=== PATIENT | male | born 1980 | race Caucasian/White ===

== ENCOUNTER 2018-08-04 21:51 | Inpatient (IN) | payer MEDICAID ==
[~2018-08-04] VITALS: Ht 177.8 cm; Wt 63.6 kg
[2018-08-04] MEDS ORDERED: ondansetron/PF 4mg/2ml inj IV STA (22:04)
[2018-08-04] MEDS ORDERED: HYDROmorphone 1 mg/ml syringe IV STA (22:04)
[2018-08-04] MEDS ORDERED: NO HOME MEDS (22:09)
--- NOTE | 2018-08-04 22:43 | NUR ---
Pt's cousin and now at bedside. Pt updated on plan of care. Pt awaiting er md.
[2018-08-04] MEDS ORDERED: HYDROmorphone 1 mg/ml syringe IV PRN (22:55)
--- NOTE | 2018-08-04 23:48 | NUR ---
Assessment completed for primary RN.
[2018-08-04] MEDS: normal saline 1000ml 1,000 ML IV SCH (23:49)
[2018-08-04] MEDS ORDERED: clindamycin phosphate 150mg/ml inj. ONE (23:59)
[2018-08-04] MEDS ORDERED: gentamicin 40 MG/1 ML inj ONE (23:59)
[2018-08-05] VITALS (19 sets, daily range): BP systolic 102–150; BP diastolic 59–82
[2018-08-05] MEDS ORDERED: HYDROcodone/acetaminophen 5mg/325mg tablet PO PRN
[2018-08-05] MEDS ORDERED: magnesium hydroxide 30ml (MOM) UD suspension PO PRN
[2018-08-05] MEDS ORDERED: magnesium 4gm in 100ml NS 100 ML IV PRN
[2018-08-05] MEDS ORDERED: HYDROcodone/acetaminophen 10/325mg tab PO PRN
[2018-08-05] MEDS ORDERED: potassium Cl 40MEQ/NS 500ml 500 ML IV PRN
[2018-08-05] MEDS ORDERED: acetaminophen 325mg tablet PO PRN ×2
[2018-08-05] MEDS ORDERED: potassium CL 10mEq/100ml bag 100 ML IV PRN
[2018-08-05] MEDS ORDERED: magnesium 2GM in 50ml NS 50 ML IV PRN
[2018-08-05] MEDS ORDERED: potassium Cl 20 mEq SR tablet PO PRN ×2
[2018-08-05] MEDS ORDERED: magnesium Cl slow-release 64mg tablet PO PRN
[2018-08-05] MEDS ORDERED: mag hydrox/Alum hydrox/simeth 30ml oral suspension PO PRN
[2018-08-05] MEDS ORDERED: HYDROmorphone inj. 0.5 MG/0.5 ML DISP.SYRIN IV PRN
[2018-08-05] MEDS ORDERED: HYDROmorphone 1 mg/ml syringe IV PRN
--- NOTE | 2018-08-05 00:04 | NUR ---
DR TY AT BEDSIDE. ADMISSION ORDERS IN. SURGERY TRANSPORT HERE. PT TALKING WITH AND REPORTS DR. MCWILLIAMS HAS JUST CALLED AND UPDATED HER. EKG JUST COMPLETED. PT PREPARED FOR OR AND IN TRANSIT NOW.
[2018-08-05] MEDS ORDERED: ringers solution, lacted 1,000 ML IV SCH (00:08)
[2018-08-05] MEDS ORDERED: ondansetron/PF 4mg/2ml inj IV PRN ×2 (00:10)
[2018-08-05] MEDS ORDERED: proCHLORperazine 10 MG/2 ml inj IV PRN (00:10)
[2018-08-05] MEDS ORDERED: morphine 4 MG/ML inj SYRINge IV PRN ×2 (00:10)
[2018-08-05] MEDS ORDERED: meperidine/PF 25mg/ml syringe IV PRN ×4 (00:10→01:40)
[2018-08-05] MEDS ORDERED: midazolam 2 mg/2 ml injection ONE (00:12)
[2018-08-05] MEDS ORDERED: fentaNYL /PF 50mcg/ml 5ml ampule ONE (00:12)
[2018-08-05] MEDS ORDERED: propofol inj 20 ML IV ONE (00:14)
[2018-08-05] MEDS ORDERED: LIDOcaine 2% (20mg/ml) 5ml vial ONE (00:14)
[2018-08-05 00:15] LABS: ALANINE AMINOTRANSFERASE 19 U/L (12-78); ALBUMIN 3.1 G/DL (3.4-5.0); ALKALINE PHOSPHATASE 51 IU/L (46-116); ANION GAP 6 (8-16); ASPARTATE AMINO TRANSFERASE 17 U/L (10-37); BASOPHILS % (AUTO) 0.1 % (0-1); BILIRUBIN,TOTAL 0.6 MG/DL (0.1-1.0); BLOOD UREA NITROGEN 15 MG/DL (7-18); BUN/CREATININE RATIO 14.9 (5.4-32.0); CALCIUM 8.4 MG/DL (8.5-10.1); CHLORIDE 104 MMOL/L (99-107); CREATININE 1.01 MG/DL (0.60-1.10); EOSINOPHILS % (AUTO) 0 % (0-6); GLUCOSE 121 MG/DL (70-104); HEMATOCRIT 40.1 % (42.0-52.0); HEMOGLOBIN 13.8 g/dl (14.0-17.9); LIPASE 155 U/L (73-393); LYMPHOCYTES # (AUTO) 0.2 X10'3 (1.1-4.8); LYMPHOCYTES % (AUTO) 2.4 % (21-51); MEAN CORPUSCULAR HEMOGLOBIN 32.5 PG (27.0-31.0); MEAN CORPUSCULAR HGB CONC 34.4 g/dL (33.0-36.5); MEAN CORPUSCULAR VOLUME 94.4 FL (78-98); MEAN PLATELET VOLUME 7.2 FL (7.4-10.4); MONOCYTES # (AUTO) 0.4 X10'3 (0-0.9); MONOCYTES % (AUTO) 3.9 % (2-12); NEUTROPHILS # (AUTO) 9.8 X10'3 (1.8-7.7); NEUTROPHILS % (AUTO) 93.6 % (42-75); PLATELET COUNT 287 X10'3 (140-440); POTASSIUM 4.6 MMOL/L (3.5-5.1); RED BLOOD COUNT 4.25 X10'6 (4.70-6.10); RED CELL DISTRIBUTION WIDTH 13.3 % (11.5-14.5); SODIUM 136 MMOL/L (135-145); TOTAL CARBON DIOXIDE 26.1 MMOL/L (24-32); TOTAL PROTEIN 6.1 G/DL (6.4-8.2); WHITE BLOOD COUNT 10.5 X10'3 (4.5-11.0); eGFR 82 ML/MIN
[2018-08-05] MEDS ORDERED: acetaminophen 1000 MG/100ml vial IV ONE (00:15)
[2018-08-05] MEDS ORDERED: dexamethasone sod phosphate 10mg/ml inj ONE (00:15)
[2018-08-05] MEDS ORDERED: sevoflurane 250ml liquid IH ONE (00:15)
[2018-08-05] MEDS ORDERED: rocuronium 10mg/ml inj IV ONE ×2 (00:25→01:32)
[2018-08-05] MEDS: cefotetan 1gm/50ml IVPB 50 ML IV SCH ×2 (00:50→01:20)
[2018-08-05 00:55] LABS: PARTIAL THROMBOPLASTIN TIME 26 SECONDS (22-32)
[2018-08-05] MEDS ORDERED: ondansetron/PF 4mg/2ml inj ONE (01:22)
[2018-08-05] MEDS ORDERED: neostigmine methylsulfate 1 MG/ML 10ml vial ONE (01:32)
[2018-08-05] MEDS ORDERED: glycopyrrolate 0.2mg/ml inj ONE (01:32)
[2018-08-05] MEDS ORDERED: naloxone 0.4 mg/ml inj IV PRN (01:45)
[2018-08-05] MEDS ORDERED: CADD PCA waste documentation MC PRN (01:45)
[2018-08-05] MEDS ORDERED: HYDROmorphone/NS 1 mg/ml CADD 50 ML IV SCH (01:45)
--- NOTE | 2018-08-05 01:55 | NUR ---
Received from OR via bed, accompanied by Anesthesiologist. Report received. Initial physical assessment done and recorded. N/G to low continuous suction small amount clear drainage. Boyd gravity with dark urine in collection bag, MD aware. Abdominal dressing D/I DAVID drain noted with small amount of light red drainage. Responsive to name, no complaints of pain on admission.
--- NOTE | 2018-08-05 02:10 | NUR ---
C/O surgical pain, medicated as ordered
--- NOTE | 2018-08-05 03:05 | NUR ---
Discharge criteria met, report to receiving floor. Transferred to room in stable condition. Dilaudid CONSERVATION SCIENTIST set up on arrival to floor, report and bedside handoff to receiving RN Cesar.
[2018-08-05] MEDS: HYDROmorphone/NS 1 mg/ml CADD 50 ML IV SCH ×11 (03:06→23:00)
--- NOTE | 2018-08-05 03:10 | NUR ---
pt arrived to floor in stable condition via gurney. PILE DRIVER set up with instructions given to pt for use. 2 rn skin check conducted, pt oriented to room, call charles within reach, bed lowered and locked with 2 side rails up. Vitals; 97.2 F 14RR, 83HR, 96% SPO2 room air. Will continue to monitor
[2018-08-05] MEDS: pantoprazole 40MG/NS 100ML BAG 100 ML IV SCH ×4 (04:52→20:49)
--- NOTE | 2018-08-05 06:27 | NUR ---
Problems reprioritized. Patient report given, questions answered & plan of care reviewed with AIDEN Pace.
[2018-08-05] MEDS: normal saline 1000ml 1,000 ML IV SCH ×6 (06:29→20:48)
--- NOTE | 2018-08-05 06:29 | NUR ---
Problems reprioritized. Patient report given, questions answered & plan of care reviewed with AIDEN Nuñez.
--- NOTE | 2018-08-05 06:51 | NUR ---
Patient in room [facility]. I have received report from AIDEN Guerrero and had the opportunity to ask questions and assume patient care.
[2018-08-05] MEDS: K and/or MAG REPLACEMENT MC SCH (07:12)
[2018-08-05] MEDS: enoxaparin 40mg/0.4ml syringe SQ SCH (07:32)
[2018-08-05] MEDS: piperacillin/tazo 3.375gm/50ml 50 ML IV SCH ×2 (07:32→16:27)
--- NOTE | 2018-08-05 11:28 | NUR ---
Post op vital signs from this morning were not put in by NOC shift due to the machine turning off and having to restart the vitals. PCT on day shift will input the vitals starting at 0600.
[2018-08-05] MEDS ORDERED: pantoprazole 40MG/NS 100ML BAG 100 ML IV SCH (16:00)
--- NOTE | 2018-08-05 18:33 | NUR ---
Problems reprioritized. Patient report given, questions answered & plan of care reviewed with Dianne Dean RN.
--- NOTE | 2018-08-05 18:35 | NUR ---
Patient in room [facility]. I have received report from BELEN WOLFE and had the opportunity to ask questions and assume patient care.
[2018-08-05] MEDS ORDERED: temazepam 15mg capsule PO PRN (21:00)
[2018-08-06] VITALS: BP 105/70
[2018-08-06] MEDS: piperacillin/tazo 3.375gm/50ml 50 ML IV SCH ×3 (00:39→17:16)
[2018-08-06] MEDS: HYDROmorphone/NS 1 mg/ml CADD 50 ML IV SCH ×12 (01:00→23:00)
[2018-08-06] MEDS: pantoprazole 40MG/NS 100ML BAG 100 ML IV SCH ×5 (02:11→22:38)
[2018-08-06] MEDS: normal saline 1000ml 1,000 ML IV SCH ×2 (02:13→13:47)
[2018-08-06 05:40] LABS: BASOPHILS % (AUTO) 0.1 % (0-1); EOSINOPHILS % (AUTO) 0 % (0-6); HEMATOCRIT 31.8 % (42.0-52.0); HEMOGLOBIN 10.9 g/dl (14.0-17.9); LYMPHOCYTES # (AUTO) 0.8 X10'3 (1.1-4.8); LYMPHOCYTES % (AUTO) 6.8 % (21-51); MEAN CORPUSCULAR HEMOGLOBIN 32.5 PG (27.0-31.0); MEAN CORPUSCULAR HGB CONC 34.3 g/dL (33.0-36.5); MEAN CORPUSCULAR VOLUME 94.9 FL (78-98); MEAN PLATELET VOLUME 7.9 FL (7.4-10.4); MONOCYTES # (AUTO) 0.6 X10'3 (0-0.9); MONOCYTES % (AUTO) 4.7 % (2-12); NEUTROPHILS # (AUTO) 10.7 X10'3 (1.8-7.7); NEUTROPHILS % (AUTO) 88.4 % (42-75); PLATELET COUNT 215 X10'3 (140-440); RED BLOOD COUNT 3.36 X10'6 (4.70-6.10); WHITE BLOOD COUNT 12.1 X10'3 (4.5-11.0)
[2018-08-06 05:41] LABS: PARTIAL THROMBOPLASTIN TIME 38 SECONDS (22-32)
[2018-08-06 06:21] LABS: ALANINE AMINOTRANSFERASE 15 U/L (12-78); ALBUMIN 2.2 G/DL (3.4-5.0); ALBUMIN/GLOBULIN RATIO 0.7 (1.1-1.5); ALKALINE PHOSPHATASE 38 IU/L (46-116); ANION GAP 6 (8-16); ASPARTATE AMINO TRANSFERASE 18 U/L (10-37); BILIRUBIN,TOTAL 0.4 MG/DL (0.1-1.0); BLOOD UREA NITROGEN 11 MG/DL (7-18); BUN/CREATININE RATIO 12.4 (5.4-32.0); CALCIUM 8.2 MG/DL (8.5-10.1); CHLORIDE 104 MMOL/L (99-107); CREATININE 0.89 MG/DL (0.60-1.10); GLUCOSE 77 MG/DL (70-104); MAGNESIUM 1.6 MG/DL (1.5-2.4); PHOSPHORUS 2.1 MG/DL (2.3-4.5); POTASSIUM 3.6 MMOL/L (3.5-5.1); SODIUM 137 MMOL/L (135-145); TOTAL CARBON DIOXIDE 26.7 MMOL/L (24-32); TOTAL PROTEIN 5.4 G/DL (6.4-8.2); eGFR > 90 ML/MIN
--- NOTE | 2018-08-06 06:30 | NUR ---
Problems reprioritized. Patient report given, questions answered & plan of care reviewed with DALTON WOLFE.
[2018-08-06 07:15] VITALS: BP 105/66
[2018-08-06] MEDS: enoxaparin 40mg/0.4ml syringe SQ SCH (07:45)
[2018-08-06] MEDS: K and/or MAG REPLACEMENT MC SCH (07:47)
[2018-08-06] MEDS ORDERED: sodium phosphate inj. 30 MMOL in dextrose 5%-water 250 ML IV PRN (10:50)
[2018-08-06] MEDS ORDERED: Neutra Phos packet PO PRN (10:50)
[2018-08-06] MEDS ORDERED: sodium phosphate inj. 15 MMOL in dextrose 5%-water 150 ML IV PRN (10:50)
[2018-08-06 11:00] VITALS: BP 108/66
--- NOTE | 2018-08-06 11:14 | NUR ---
Pharmacy going to deliver IV phos replacement. will administer when it arrives.
--- NOTE | 2018-08-06 18:22 | NUR ---
Problems reprioritized. Patient report given, questions answered & plan of care reviewed with AIDEN Rodriguez.
--- NOTE | 2018-08-06 18:30 | NUR ---
Patient in room [facility]. I have received report from DALTON WOLFE and had the opportunity to ask questions and assume patient care.
[2018-08-06] MEDS: ondansetron/PF 4mg/2ml inj IV PRN (19:59)
[2018-08-06 20:00] VITALS: BP 119/74
[2018-08-06] MEDS: lactobacillus rhamnosus 10,000 MMU CELLS/CAPSULE PO SCH (20:00)
[2018-08-07] VITALS: BP 117/82
[2018-08-07] MEDS: piperacillin/tazo 3.375gm/50ml 50 ML IV SCH ×3 (00:26→16:12)
[2018-08-07] MEDS: normal saline 1000ml 1,000 ML IV SCH ×3 (00:27→20:42)
[2018-08-07] MEDS: HYDROmorphone/NS 1 mg/ml CADD 50 ML IV SCH ×12 (01:00→23:00)
[2018-08-07] MEDS: ondansetron/PF 4mg/2ml inj IV PRN ×2 (04:23→10:17)
[2018-08-07] MEDS: pantoprazole 40MG/NS 100ML BAG 100 ML IV SCH ×5 (04:26→21:40)
[2018-08-07 05:08] LABS: BASOPHILS % (AUTO) 0.1 % (0-1); EOSINOPHILS % (AUTO) 0.1 % (0-6); HEMATOCRIT 36.2 % (42.0-52.0); HEMOGLOBIN 12.3 g/dl (14.0-17.9); LYMPHOCYTES # (AUTO) 0.6 X10'3 (1.1-4.8); LYMPHOCYTES % (AUTO) 4.8 % (21-51); MEAN CORPUSCULAR HGB CONC 33.9 g/dL (33.0-36.5); MEAN CORPUSCULAR VOLUME 94.4 FL (78-98); MEAN PLATELET VOLUME 7.4 FL (7.4-10.4); MONOCYTES # (AUTO) 0.5 X10'3 (0-0.9); PLATELET COUNT 274 X10'3 (140-440); RED BLOOD COUNT 3.84 X10'6 (4.70-6.10); WHITE BLOOD COUNT 13.2 X10'3 (4.5-11.0)
[2018-08-07 05:09] LABS: PARTIAL THROMBOPLASTIN TIME 34 SECONDS (22-32)
[2018-08-07 05:25] LABS: ALANINE AMINOTRANSFERASE 15 U/L (12-78); ALBUMIN/GLOBULIN RATIO 0.6 (1.1-1.5); ALKALINE PHOSPHATASE 41 IU/L (46-116); ANION GAP 9 (8-16); ASPARTATE AMINO TRANSFERASE 17 U/L (10-37); BILIRUBIN,TOTAL 0.3 MG/DL (0.1-1.0); BLOOD UREA NITROGEN 14 MG/DL (7-18); BUN/CREATININE RATIO 17.5 (5.4-32.0); CALCIUM 8.3 MG/DL (8.5-10.1); CHLORIDE 104 MMOL/L (99-107); GLUCOSE 79 MG/DL (70-104); MAGNESIUM 1.7 MG/DL (1.5-2.4); PHOSPHORUS 3.3 MG/DL (2.3-4.5); POTASSIUM 3.7 MMOL/L (3.5-5.1); SODIUM 138 MMOL/L (135-145); TOTAL CARBON DIOXIDE 25.2 MMOL/L (24-32); TOTAL PROTEIN 5.5 G/DL (6.4-8.2); eGFR > 90 ML/MIN
--- NOTE | 2018-08-07 06:38 | NUR ---
Problems reprioritized. Patient report given, questions answered & plan of care reviewed with SHELBY WOLFE.
--- NOTE | 2018-08-07 06:52 | NUR ---
Patient in room [facility]. I have received report from AIDEN PALMER and had the opportunity to ask questions and assume patient care.
[2018-08-07] MEDS: enoxaparin 40mg/0.4ml syringe SQ SCH (07:41)
[2018-08-07 08:00] VITALS: BP 112/73
[2018-08-07] MEDS: lactobacillus rhamnosus 10,000 MMU CELLS/CAPSULE PO SCH ×2 (08:00→20:00)
[2018-08-07] MEDS: K and/or MAG REPLACEMENT MC SCH (08:00)
[2018-08-07 12:31] VITALS: BP 107/67
--- NOTE | 2018-08-07 18:37 | NUR ---
Problems reprioritized. Patient report given, questions answered & plan of care reviewed with Yamile PALMER
--- NOTE | 2018-08-07 18:40 | NUR ---
Patient in room [facility]. I have received report from SHELBY WOLFE and had the opportunity to ask questions and assume patient care.
[2018-08-07 19:59] VITALS: BP 113/75
[2018-08-08] VITALS: BP 106/62
[2018-08-08] MEDS: piperacillin/tazo 3.375gm/50ml 50 ML IV SCH ×3 (00:44→15:46)
[2018-08-08] MEDS: HYDROmorphone/NS 1 mg/ml CADD 50 ML IV SCH ×6 (01:00→11:00)
[2018-08-08] MEDS: pantoprazole 40MG/NS 100ML BAG 100 ML IV SCH ×5 (03:11→23:11)
[2018-08-08 05:29] LABS: ALANINE AMINOTRANSFERASE 13 U/L (12-78); ALBUMIN 1.7 G/DL (3.4-5.0); ALBUMIN/GLOBULIN RATIO 0.5 (1.1-1.5); ALKALINE PHOSPHATASE 35 IU/L (46-116); ANION GAP 8 (8-16); ASPARTATE AMINO TRANSFERASE 11 U/L (10-37); BILIRUBIN,TOTAL 0.4 MG/DL (0.1-1.0); BLOOD UREA NITROGEN 15 MG/DL (7-18); BUN/CREATININE RATIO 21.7 (5.4-32.0); CALCIUM 7.9 MG/DL (8.5-10.1); CHLORIDE 105 MMOL/L (99-107); CREATININE 0.69 MG/DL (0.60-1.10); GLUCOSE 78 MG/DL (70-104); MAGNESIUM 1.6 MG/DL (1.5-2.4); PHOSPHORUS 2.5 MG/DL (2.3-4.5); POTASSIUM 3.2 MMOL/L (3.5-5.1); SODIUM 136 MMOL/L (135-145); TOTAL CARBON DIOXIDE 23.3 MMOL/L (24-32); TOTAL PROTEIN 4.9 G/DL (6.4-8.2); eGFR > 90 ML/MIN
[2018-08-08 05:32] LABS: BASOPHILS % (AUTO) 0.2 % (0-1); EOSINOPHILS # (AUTO) 0.1 X10'3 (0-0.9); EOSINOPHILS % (AUTO) 1.3 % (0-6); HEMATOCRIT 31.7 % (42.0-52.0); LYMPHOCYTES % (AUTO) 10.7 % (21-51); MEAN CORPUSCULAR HEMOGLOBIN 32.8 PG (27.0-31.0); MEAN CORPUSCULAR HGB CONC 34.7 g/dL (33.0-36.5); MEAN CORPUSCULAR VOLUME 94.4 FL (78-98); MEAN PLATELET VOLUME 7.5 FL (7.4-10.4); MONOCYTES # (AUTO) 0.6 X10'3 (0-0.9); MONOCYTES % (AUTO) 6.8 % (2-12); NEUTROPHILS # (AUTO) 7.5 X10'3 (1.8-7.7); PLATELET COUNT 255 X10'3 (140-440); RED BLOOD COUNT 3.36 X10'6 (4.70-6.10); RED CELL DISTRIBUTION WIDTH 12.6 % (11.5-14.5); WHITE BLOOD COUNT 9.3 X10'3 (4.5-11.0)
[2018-08-08 05:40] LABS: PARTIAL THROMBOPLASTIN TIME 31 SECONDS (22-32)
--- NOTE | 2018-08-08 06:26 | NUR ---
Problems reprioritized. Patient report given, questions answered & plan of care reviewed with SHELBY WOLFE.
--- NOTE | 2018-08-08 06:27 | NUR ---
Patient in room [facility]. I have received report from AIDEN PALMER and had the opportunity to ask questions and assume patient care.
[2018-08-08 07:00] VITALS: BP 121/82
[2018-08-08] MEDS: enoxaparin 40mg/0.4ml syringe SQ SCH (07:02)
[2018-08-08] MEDS: normal saline 1000ml 1,000 ML IV SCH ×2 (07:02→18:34)
[2018-08-08] MEDS: lactobacillus rhamnosus 10,000 MMU CELLS/CAPSULE PO SCH ×2 (08:00→20:41)
[2018-08-08] MEDS: K and/or MAG REPLACEMENT MC SCH (08:00)
[2018-08-08] MEDS ORDERED: potassium CL 10mEq/100ml bag 100 ML IV PRN (11:20)
[2018-08-08 12:15] VITALS: BP 140/88
[2018-08-08] MEDS: potassium Cl 20 mEq SR tablet PO PRN ×2 (15:47→20:41)
[2018-08-08] MEDS: HYDROcodone/acetaminophen 10/325mg tab PO PRN ×2 (15:47→20:41)
--- NOTE | 2018-08-08 18:11 | NUR ---
Problems reprioritized. Patient report given, questions answered & plan of care reviewed with AIDEN Rodriguez.
--- NOTE | 2018-08-08 18:30 | NUR ---
Patient in room [facility]. I have received report from SHELBY WOLFE and had the opportunity to ask questions and assume patient care.
[2018-08-08 20:00] VITALS: BP 107/68
[2018-08-09] VITALS: BP 104/57
[2018-08-09] MEDS: pantoprazole 40MG/NS 100ML BAG 100 ML IV SCH ×2 (01:00→04:23)
[2018-08-09] MEDS: piperacillin/tazo 3.375gm/50ml 50 ML IV SCH ×2 (01:22→07:18)
[2018-08-09] MEDS: normal saline 1000ml 1,000 ML IV SCH (03:00)
[2018-08-09] MEDS: HYDROcodone/acetaminophen 10/325mg tab PO PRN ×4 (03:00→20:54)
[2018-08-09 06:10] LABS: BASOPHILS % (AUTO) 0.2 % (0-1); EOSINOPHILS # (AUTO) 0.1 X10'3 (0-0.9); HEMATOCRIT 29.8 % (42.0-52.0); HEMOGLOBIN 10.1 g/dl (14.0-17.9); LYMPHOCYTES # (AUTO) 0.7 X10'3 (1.1-4.8); LYMPHOCYTES % (AUTO) 8.2 % (21-51); MEAN CORPUSCULAR HEMOGLOBIN 32.2 PG (27.0-31.0); MEAN CORPUSCULAR VOLUME 94.8 FL (78-98); MEAN PLATELET VOLUME 7.5 FL (7.4-10.4); MONOCYTES # (AUTO) 0.6 X10'3 (0-0.9); MONOCYTES % (AUTO) 7.5 % (2-12); NEUTROPHILS # (AUTO) 7.1 X10'3 (1.8-7.7); NEUTROPHILS % (AUTO) 83.1 % (42-75); PLATELET COUNT 241 X10'3 (140-440); RED BLOOD COUNT 3.14 X10'6 (4.70-6.10); RED CELL DISTRIBUTION WIDTH 12.6 % (11.5-14.5); WHITE BLOOD COUNT 8.6 X10'3 (4.5-11.0)
[2018-08-09 06:23] LABS: ALANINE AMINOTRANSFERASE 9 U/L (12-78); ALBUMIN 1.8 G/DL (3.4-5.0); ALBUMIN/GLOBULIN RATIO 0.6 (1.1-1.5); ALKALINE PHOSPHATASE 37 IU/L (46-116); ANION GAP 10 (8-16); ASPARTATE AMINO TRANSFERASE 11 U/L (10-37); BILIRUBIN,TOTAL 0.4 MG/DL (0.1-1.0); BLOOD UREA NITROGEN 14 MG/DL (7-18); BUN/CREATININE RATIO 19.7 (5.4-32.0); CHLORIDE 106 MMOL/L (99-107); CREATININE 0.71 MG/DL (0.60-1.10); GLUCOSE 83 MG/DL (70-104); MAGNESIUM 1.6 MG/DL (1.5-2.4); PHOSPHORUS 2.9 MG/DL (2.3-4.5); POTASSIUM 3.7 MMOL/L (3.5-5.1); SODIUM 137 MMOL/L (135-145); TOTAL CARBON DIOXIDE 21.1 MMOL/L (24-32); eGFR > 90 ML/MIN
--- NOTE | 2018-08-09 06:30 | NUR ---
Problems reprioritized. Patient report given, questions answered & plan of care reviewed with ASTRID WOLFE.
--- NOTE | 2018-08-09 06:57 | NUR ---
Patient in room [facility]. I have received report from Jennie WOLFE and had the opportunity to ask questions and assume patient care.
[2018-08-09 07:00] VITALS: BP 107/59
[2018-08-09] MEDS: enoxaparin 40mg/0.4ml syringe SQ SCH (07:18)
[2018-08-09] MEDS: lactobacillus rhamnosus 10,000 MMU CELLS/CAPSULE PO SCH ×2 (07:18→20:53)
[2018-08-09] MEDS: K and/or MAG REPLACEMENT MC SCH (08:00)
[2018-08-09 11:00] VITALS: BP 108/67
--- NOTE | 2018-08-09 16:23 | NUR ---
Discontinued DAVID drain as per MD order, patient tolerated the procedure. Dressing applied on the site and secured with tape
[2018-08-09] MEDS: amox tr/potassium clavulanate 875/125mg TAB PO SCH (17:58)
--- NOTE | 2018-08-09 18:31 | NUR ---
Problems reprioritized. Patient report given, questions answered & plan of care reviewed with Jennie WOLFE.
--- NOTE | 2018-08-09 18:32 | NUR ---
Patient in room [facility]. I have received report from ASTRID WOLFE and had the opportunity to ask questions and assume patient care.
[2018-08-09 20:00] VITALS: BP 116/74
[2018-08-09] MEDS: pantoprazole 40mg Tablet.DR PO SCH (20:53)
[2018-08-10] VITALS: BP 108/70
[2018-08-10 05:06] LABS: BASOPHILS % (AUTO) 0.3 % (0-1); EOSINOPHILS # (AUTO) 0.1 X10'3 (0-0.9); EOSINOPHILS % (AUTO) 1.6 % (0-6); HEMATOCRIT 31.6 % (42.0-52.0); HEMOGLOBIN 11.3 g/dl (14.0-17.9); LYMPHOCYTES # (AUTO) 1.3 X10'3 (1.1-4.8); MEAN CORPUSCULAR HEMOGLOBIN 33.1 PG (27.0-31.0); MEAN CORPUSCULAR HGB CONC 35.6 g/dL (33.0-36.5); MEAN CORPUSCULAR VOLUME 93.1 FL (78-98); MEAN PLATELET VOLUME 7.5 FL (7.4-10.4); MONOCYTES # (AUTO) 0.8 X10'3 (0-0.9); MONOCYTES % (AUTO) 9.3 % (2-12); NEUTROPHILS # (AUTO) 6.3 X10'3 (1.8-7.7); NEUTROPHILS % (AUTO) 73.8 % (42-75); PLATELET COUNT 267 X10'3 (140-440); RED CELL DISTRIBUTION WIDTH 12.7 % (11.5-14.5); WHITE BLOOD COUNT 8.5 X10'3 (4.5-11.0)
[2018-08-10 05:29] LABS: ALANINE AMINOTRANSFERASE 18 U/L (12-78); ALBUMIN 1.9 G/DL (3.4-5.0); ALBUMIN/GLOBULIN RATIO 0.6 (1.1-1.5); ALKALINE PHOSPHATASE 39 IU/L (46-116); ANION GAP 7 (8-16); ASPARTATE AMINO TRANSFERASE 24 U/L (10-37); BILIRUBIN,TOTAL 0.2 MG/DL (0.1-1.0); BLOOD UREA NITROGEN 8 MG/DL (7-18); CHLORIDE 105 MMOL/L (99-107); GLUCOSE 83 MG/DL (70-104); MAGNESIUM 1.6 MG/DL (1.5-2.4); PHOSPHORUS 3.3 MG/DL (2.3-4.5); SODIUM 138 MMOL/L (135-145); TOTAL CARBON DIOXIDE 26.4 MMOL/L (24-32); TOTAL PROTEIN 5.1 G/DL (6.4-8.2); eGFR > 90 ML/MIN
--- NOTE | 2018-08-10 05:40 | NUR ---
CALLED DR. STARKS AND WAS INFORMED OF CRITICAL POTASSIUM 3.0 NO NEW ORDERS MADE, PATIENT ON REPLACEMENT PROTOCOL.
[2018-08-10] MEDS: potassium Cl 20 mEq SR tablet PO PRN ×3 (05:43→16:34)
[2018-08-10] MEDS: HYDROcodone/acetaminophen 10/325mg tab PO PRN ×3 (05:44→21:33)
--- NOTE | 2018-08-10 06:15 | NUR ---
Problems reprioritized. Patient report given, questions answered & plan of care reviewed with BELEN WOLFE.
--- NOTE | 2018-08-10 06:20 | NUR ---
Patient in room [facility]. I have received report from Dianne Dean RN and had the opportunity to ask questions and assume patient care.
[2018-08-10 07:29] VITALS: BP 113/76
[2018-08-10] MEDS: K and/or MAG REPLACEMENT MC SCH (08:00)
[2018-08-10] MEDS: amox tr/potassium clavulanate 875/125mg TAB PO SCH ×2 (08:30→16:33)
[2018-08-10] MEDS: lactobacillus rhamnosus 10,000 MMU CELLS/CAPSULE PO SCH ×2 (08:30→20:38)
[2018-08-10] MEDS: pantoprazole 40mg Tablet.DR PO SCH ×2 (08:30→20:38)
[2018-08-10 11:00] VITALS: BP 115/74
--- NOTE | 2018-08-10 15:34 | NUR ---
Initial: Pt s/p perforated pyloric channel ulcer repair hx heavy etoh and cocaine use. PO 50-75% regular diet meeting needs. LBM 08/09. K 3.0 receiving replacement. ALEX d/w RN for thiamin/folic/MVI per MD approval given etoh hx. Will continue to monitor. Rec: 1. continue regular diet 2. thiamin/folic/MVI per MD for etoh hx 3. wt per rx Addendum: 08/10/18 at [address] Amended: Links added.
--- NOTE | 2018-08-10 18:40 | NUR ---
Problems reprioritized. Patient report given, questions answered & plan of care reviewed with AIDEN Baltazar and AIDEN Guerrero.
--- NOTE | 2018-08-10 18:41 | NUR ---
Patient in room [facility]. I have received report from AIDEN Nuñez and had the opportunity to ask questions and assume patient care.
[2018-08-10 20:00] VITALS: BP 121/56
[2018-08-10 23:00] VITALS: BP 120/75
[2018-08-11 05:16] LABS: MAGNESIUM 1.7 MG/DL (1.5-2.4)
[2018-08-11] MEDS: HYDROcodone/acetaminophen 10/325mg tab PO PRN ×2 (05:59→10:14)
--- NOTE | 2018-08-11 06:41 | NUR ---
Problems reprioritized. Patient report given, questions answered & plan of care reviewed with AIDEN Mcneill.
--- NOTE | 2018-08-11 06:45 | NUR ---
Patient in room [facility]. I have received report from Cesar WOLFE and Delaney WOLFE and had the opportunity to ask questions and assume patient care.
[2018-08-11 07:28] VITALS: BP 131/80
[2018-08-11] MEDS: K and/or MAG REPLACEMENT MC SCH (08:00)
--- NOTE | 2018-08-11 08:07 | NUR ---
paged regarding right arm redness, tenderness, and firm to touch. Awaiting call back.
[2018-08-11] MEDS: pantoprazole 40mg Tablet.DR PO SCH (08:19)
[2018-08-11] MEDS: amox tr/potassium clavulanate 875/125mg TAB PO SCH (08:19)
[2018-08-11] MEDS: lactobacillus rhamnosus 10,000 MMU CELLS/CAPSULE PO SCH (08:19)
[2018-08-11 08:27] LABS: POTASSIUM 3.4 MMOL/L (3.5-5.1)
[2018-08-11] MEDS: potassium Cl 20 mEq SR tablet PO PRN (08:30)
--- NOTE | 2018-08-11 09:08 | NUR ---
informed of redness and tenderness to right arm. stated he will assess pt.
[2018-08-11] MEDS ORDERED: PANT-47 PO (10:07)
[2018-08-11] MEDS ORDERED: HYDR-4383 PO (10:07)
[2018-08-11] MEDS ORDERED: AMOX-580 PO (10:07)
[2018-08-11] MEDS ORDERED: potassium Cl 20 mEq SR tablet PO ONE (11:00)
[2018-08-11 12:39] VITALS: BP 125/75
--- NOTE | 2018-08-11 13:28 | NUR ---
paged regarding right arm ultrasound results. Awaiting call back.
--- NOTE | 2018-08-11 14:15 | NUR ---
stated pt okay to go home, reviewd US results. stated to instruct pt to apply warm compresses and to elevate right arm. Patient discharged with all belongings. Friend to take pt home. IV taken out. Rx delivered to bedside via [employer].
--- NOTE | 2018-08-11 14:16 | NUR ---
Pt walked down to lobby with PCT.
== END 2018-08-11 14:18 | disposition home or self-care (01) | DRG 222 ==
LOC: ER 21:53 → MED 3N 08-05 00:19 → SUR 3N 08-05 00:20
PROVIDERS: ADMIT Family Medicine; ATTEND Internal Medicine
PROC: 0DU707Z Supplement Stomach, Pylorus with Autologous Tissue Substitute, Open Approach (ICD-10-PCS; principal; 2018-08-05 00:15)
DX: K25.1 Acute gastric ulcer with perforation (principal); K65.9 Peritonitis, unspecified; D62 Acute posthemorrhagic anemia; F12.90 Cannabis use, unspecified, uncomplicated; F17.210 Nicotine dependence, cigarettes, uncomplicated; K56.7 Ileus, unspecified; K57.90 Diverticulosis of intestine, part unspecified, without perforation or abscess without bleeding; E87.6 Hypokalemia; Z79.899 Other long term (current) drug therapy
CPT/HCPCS: 36415; 80053; 83690; 83735; 84100; 84132; 84484; 85025; 85610; 85730; 86885; 86900; 86901; 87015; 87070; 87075; 87102; 93005; 93971; 96374; 96375; 99285; A6251; A6253; A6266; A7000; C1758; C9113; G0378; J0131; J1100; J1170; J1580; J1650; J2001; J2175; J2250; J2405; J2543; J2704; J2710; J3010; J3480; J3490; J7030; J7060; J7120